=== PATIENT | female | born 1970 | race Caucasian/White ===

== ENCOUNTER 2018-01-21 16:04 | Emergency (ER) | payer MEDICAID ==
[~2018-01-21] VITALS: Ht 175.3 cm; Wt 91.2 kg
[~2018-01-21 16:04] MED LIST: CIPR7.5D2 LEFT EAR; CLON-527 PO; CYCL-1 PO; CYCL-120 PO; CYCL-394 PO; GABA300C PO; IBUP-1051 PO
[2018-01-21 16:17] VITALS: BP 143/94
[2018-01-21] MEDS ORDERED: ketorolac trometh. 30mg/ml inj. IM ONE (17:30)
[2018-01-21] MEDS ORDERED: ketorolac trometh inj. 60 MG/2 ML VIAL IM ONE (17:30)
[2018-01-21] MEDS ORDERED: IBUP-1985 PO (17:43)
== END 2018-01-21 18:35 | disposition home or self-care (01) ==
LOC: ER 16:05
DX: S46.912A Strain of unspecified muscle, fascia and tendon at shoulder and upper arm level, left arm, initial encounter (principal); G89.29 Other chronic pain; Z56.0 Unemployment, unspecified; Z79.899 Other long term (current) drug therapy; X58.XXXA Exposure to other specified factors, initial encounter; Y93.89 Activity, other specified; Y92.89 Other specified places as the place of occurrence of the external cause; Y99.8 Other external cause status
CPT/HCPCS: 96372; 99283; A4565; J1885

== ENCOUNTER 2020-07-17 10:41 | Emergency (ER) | payer MEDICAID, OTHER ==
[~2020-07-17] VITALS: Ht 175.3 cm; Wt 102.7 kg
[~2020-07-17 10:41] MED LIST changes: +IBUP-1985 PO
[2020-07-17] MEDS ORDERED: HYDROcodone/acetaminophen 5mg/325mg tablet PO ONE (11:05)
[2020-07-17] MEDS ORDERED: ketorolac trometh. 30mg/ml inj. IV ONE (11:05)
[2020-07-17] MEDS ORDERED: diazepam inj 5 MG/ML inj. IV ONE (11:05)
[2020-07-17] MEDS ORDERED: TRAM50TA2 PO (12:53)
[2020-07-17] MEDS ORDERED: NAPR-56 PO (12:53)
[2020-07-17] MEDS ORDERED: CYCL-1 PO (12:53)
[2020-07-17 13:26] VITALS: BP 120/74
== END 2020-07-17 13:35 | disposition home or self-care (01) ==
LOC: ER 10:41
DX: S13.4XXA Sprain of ligaments of cervical spine, initial encounter (principal); M54.5 Low back pain; M54.2 Cervicalgia; M25.519 Pain in unspecified shoulder; G89.29 Other chronic pain; F41.9 Anxiety disorder, unspecified; F32.9 Major depressive disorder, single episode, unspecified; Z72.89 Other problems related to lifestyle; Z56.0 Unemployment, unspecified; Z79.2 Long term (current) use of antibiotics; Z79.899 Other long term (current) drug therapy; V89.2XXA Person injured in unspecified motor-vehicle accident, traffic, initial encounter; Y93.89 Activity, other specified; Y92.89 Other specified places as the place of occurrence of the external cause; Y99.8 Other external cause status
CPT/HCPCS: 71045; 72040; 72100; 96374; 96375; 99284; J1885; J3360